=== PATIENT | male | born 1960 | race Caucasian/White ===

== ENCOUNTER 2016-06-10 10:25 | Inpatient (IN) | payer MEDICARE, OTHER ==
[~2016-06-10] VITALS: Ht 182.9 cm; Wt 102.1 kg
[2016-06-10 11:30] LABS: HEMOGLOBIN 13.5 gm/dl (14.0-17.5); RED BLOOD COUNT 4.69 M/UL (4.20-5.50); WHITE BLOOD COUNT 8.9 K/UL (4.5-11.0)
[2016-06-10 11:54] LABS: BUN/CREATININE RATIO 10 (0-10)
[2016-06-10] MEDS ORDERED: PLAVIX75 MG PO (19:10)
[2016-06-10] MEDS ORDERED: ZESTRIL/PRINIVI10 MG PO (19:11)
[2016-06-10] MEDS ORDERED: NORVASC 5 MG TAB5 MG PO (19:11)
[2016-06-10] MEDS ORDERED: PERCOCET 7.5-31 EACH PO (19:12)
[2016-06-10] MEDS ORDERED: NEXIUM40 MG PO (19:13)
[2016-06-10] MEDS ORDERED: DURAGESIC 100 MC1 EA TD (19:13)
[2016-06-10] MEDS ORDERED: PROVENTIL HFA 61 INH INH (19:14)
[2016-06-10] MEDS ORDERED: CRESTOR10 MG PO (19:14)
[2016-06-10] MEDS ORDERED: FLONASE 0.05% N16 GM (19:15)
[2016-06-10] MEDS ORDERED: GLUCOPHAGE1000 MG PO (19:19)
[2016-06-10] MEDS ORDERED: ZOFRAN4 MG PO (19:21)
[2016-06-10] MEDS ORDERED: PHENERGAN 25 MG25 M1 PO (19:21)
[2016-06-10] MEDS ORDERED: LANTUS100 UNIT/1 SQ (19:22)
[2016-06-10] MEDS ORDERED: NEURONTIN 300300 MG PO (19:22)
[2016-06-10 19:30] LABS: HEMOGLOBIN 12.5 gm/dl (14.0-17.5); RED BLOOD COUNT 4.39 M/UL (4.20-5.50)
[2016-06-10 19:44] LABS: BUN/CREATININE RATIO 9 (0-10)
[2016-06-12 05:54] LABS: HEMOGLOBIN 11.5 gm/dl (14.0-17.5); RED BLOOD COUNT 4.01 M/UL (4.20-5.50)
[2016-06-12 05:55] LABS: WHITE BLOOD COUNT 5.7 K/UL (4.5-11.0)
[2016-06-12 06:12] LABS: BUN/CREATININE RATIO 6 (0-10)
[2016-06-13 06:38] LABS: HEMOGLOBIN 11.6 gm/dl (14.0-17.5); RED BLOOD COUNT 4.1 M/UL (4.20-5.50)
[2016-06-13 07:43] LABS: BUN/CREATININE RATIO 4 (0-10)
[2016-06-14 04:38] LABS: HEMOGLOBIN 10.9 gm/dl (14.0-17.5); RED BLOOD COUNT 3.84 M/UL (4.20-5.50); WHITE BLOOD COUNT 6.7 K/UL (4.5-11.0)
[2016-06-14 05:00] LABS: BUN/CREATININE RATIO 5 (0-10)
[2016-06-15 06:45] LABS: HEMOGLOBIN 10.8 gm/dl (14.0-17.5); RED BLOOD COUNT 3.81 M/UL (4.20-5.50); WHITE BLOOD COUNT 4.6 K/UL (4.5-11.0)
[2016-06-15 07:15] LABS: BUN/CREATININE RATIO 7 (0-10)
[2016-06-17 05:23] LABS: BUN/CREATININE RATIO 6 (0-10)
[2016-06-18 04:24] LABS: RED BLOOD COUNT 3.88 M/UL (4.20-5.50); WHITE BLOOD COUNT 4.9 K/UL (4.5-11.0)
[2016-06-18 04:40] LABS: BUN/CREATININE RATIO 7 (0-10)
[2016-06-19 05:26] LABS: HEMOGLOBIN 11.5 gm/dl (14.0-17.5); RED BLOOD COUNT 4.02 M/UL (4.20-5.50); WHITE BLOOD COUNT 5.7 K/UL (4.5-11.0)
[2016-06-19 05:48] LABS: BUN/CREATININE RATIO 9 (0-10)
[2016-10-01] MEDS ORDERED: IMDUR ER TAB 3030 MG PO (11:27)
[2016-10-01] MEDS ORDERED: SUPER ENZYME C1 EACH PO (11:28)
[2016-10-01] MEDS ORDERED: LOPRESSOR 25 MG25 MG PO (11:29)
[2016-10-01] MEDS ORDERED: RANEXA500 MG PO (11:29)
[2016-10-01] MEDS ORDERED: ZOFRAN4 MG PO (11:41)
== END 2016-06-19 09:30 | disposition home or self-care (01) | DRG 440 ==
LOC: ER1 10:25 → ZEROF 17:17 → MED SURG 4 17:17
PROVIDERS: Emergency Medicine; Student in an Organized Health Care Education/Training Program; ADMIT Family Medicine
DX: K85.90 Acute pancreatitis without necrosis or infection, unspecified (principal); I25.10 Atherosclerotic heart disease of native coronary artery without angina pectoris; K59.00 Constipation, unspecified; Z95.1 Presence of aortocoronary bypass graft; I10 Essential (primary) hypertension; E11.9 Type 2 diabetes mellitus without complications; R00.0 Tachycardia, unspecified; E78.5 Hyperlipidemia, unspecified; K76.0 Fatty (change of) liver, not elsewhere classified; K86.89 Other specified diseases of pancreas; K57.30 Diverticulosis of large intestine without perforation or abscess without bleeding; Z87.891 Personal history of nicotine dependence; Z79.4 Long term (current) use of insulin; Z79.01 Long term (current) use of anticoagulants; Z79.891 Long term (current) use of opiate analgesic; Z79.899 Other long term (current) drug therapy; Z79.51 Long term (current) use of inhaled steroids; Z82.49 Family history of ischemic heart disease and other diseases of the circulatory system; Z80.0 Family history of malignant neoplasm of digestive organs; Z82.5 Family history of asthma and other chronic lower respiratory diseases
CPT/HCPCS: 36415; 71010; 80048; 80053; 81001; 82150; 82272; 82550; 82553; 82962; 83605; 83690; 83874; 84484; 85025; 85027; 85610; 85730; 86140; 93005; 94640; 94664; 96374; 96375; 96376; 99285; J1650; J2405; J2550; J7030; J7050; Q9962